=== PATIENT | female | born 1935 | race Caucasian/White ===

== ENCOUNTER → 2017-07-10 | Outpatient (CLI) | payer MEDICARE, OTHER ==
[~2017-07-10] MED LIST: (None)15 G1 TOP; AMIT10 PO; ATEN50 PO; Anastrozole1 GM PO; Atenolol-Chlor1 EACH PO; CELE200 PO; CHOL10002 PO; CLOB.05TC; CLOB.05TO; CLOB.05TO TOP; CLOP75 PO; CYCL10 PO; DICL75ER PO; FISH1000 PO; FURO40; FURO40 PO; GABA100 PO; GABA300 PO; HYDR1TAB94 PO; LEVSOD100 PO; LIDO5TP TOP; Micro-K10 MEQ; NYST100P TOP; OMEP20ER PO; Ocuvite Lutein1 EACH PO; Omeprazole20 M1 PO; POTCHL10ER PO; QUININE SULFAT324 MG PO; SIMV40 PO; VALS80 PO; Vitamin D400 UNI2 PO; WARF10 PO; WARF2.5 PO; WARF5 PO
[2017-07-13 12:57] LABS: HPV Genotype 16 Not Detected (NOTDET); HPV Genotype 18 Not Detected (NOTDET)
[2017-07-18 09:27] LABS: HPV High Risk Other Not Detected (NOTDET)
== END | disposition home or self-care (01) ==
LOC: LAB SHORT 19:21 → LAB 19:21
PROVIDERS: Nurse Practitioner Women's Health
DX: Z12.72 Encounter for screening for malignant neoplasm of vagina (principal); Z91.89 Other specified personal risk factors, not elsewhere classified
CPT/HCPCS: 87624; G0123

== ENCOUNTER → 2018-07-14 | Outpatient (CLI) | payer MEDICARE, OTHER ==
[2018-07-17 16:06] LABS: HPV 16 Negative (Negative); HPV 18 Negative (Negative); HPV OTHER HR TYPES Negative (Negative)
== END | disposition home or self-care (01) ==
LOC: LAB 17:17 → LAB SHORT 17:17
PROVIDERS: Nurse Practitioner Women's Health
DX: Z12.72 Encounter for screening for malignant neoplasm of vagina (principal); C54.1 Malignant neoplasm of endometrium; Z91.89 Other specified personal risk factors, not elsewhere classified
CPT/HCPCS: 87624; G0123